=== PATIENT | male | born 1970 | race Caucasian/White ===

== ENCOUNTER 2017-07-06 20:11 | Emergency (ER) | payer SELFPAY ==
[~2017-07-06] VITALS: Ht 175.3 cm; Wt 130.5 kg
[2017-07-06] MEDS ORDERED: CANA100T PO (20:48)
[2017-07-06] MEDS ORDERED: METO-385 PO (20:51)
[2017-07-06] MEDS ORDERED: METO50TA5 PO (20:51)
[2017-07-07] MEDS ORDERED: BACITRACIN ZINC OINT UDPKT TOP ONE ×2
[2017-07-07] MEDS ORDERED: HYDROCODONE/ACETAMINOPHEN 5/325MG TABLET PO ONE
[2017-07-07] MEDS ORDERED: LIDOCAINE HCL 1% 20ML VIAL (Pyxis) INJ MC ONE
[2017-07-07] MEDS ORDERED: TETANUS, DIPHTHERIA, PERTUSSIS VAC/PF 0.5ML (>7YR OLD) IM ONE
[2017-07-07 01:35] VITALS: BP 139/74
== END 2017-07-07 01:55 | disposition home or self-care (01) ==
LOC: ER 20:11
DX: L02.11 Cutaneous abscess of neck (principal); E11.9 Type 2 diabetes mellitus without complications; I10 Essential (primary) hypertension; Z87.891 Personal history of nicotine dependence; E66.01 Morbid (severe) obesity due to excess calories; Z68.41 Body mass index [BMI] 40.0-44.9, adult
CPT/HCPCS: 10060; 90471; 90715; 99283; J3490; Z7610

== ENCOUNTER 2017-07-08 10:25 | Emergency (ER) | payer SELFPAY ==
[~2017-07-08] VITALS: Ht 175.3 cm; Wt 132.0 kg
[~2017-07-08 10:25] MED LIST: CANA100T PO; METO-385 PO; METO50TA5 PO
[2017-07-08 11:36] VITALS: BP 163/83
[2017-07-08] MEDS ORDERED: BACITRACIN ZINC OINT UDPKT TOP ONE (12:30)
== END 2017-07-08 12:46 | disposition home or self-care (01) ==
LOC: ER 11:52
DX: Z48.00 Encounter for change or removal of nonsurgical wound dressing (principal); E11.9 Type 2 diabetes mellitus without complications; I10 Essential (primary) hypertension
CPT/HCPCS: 99283

== ENCOUNTER 2017-10-13 10:37 | Emergency (ER) | payer OTHER ==
[~2017-10-13] VITALS: Ht 175.3 cm; Wt 127.0 kg
[~2017-10-13 10:37] MED LIST changes: +METO-539 PO; -METO50TA5 PO
[2017-10-13 11:18] VITALS: BP 163/87
[2017-10-13] MEDS ORDERED: KETOROLAC 60MG/2ML VIAL IM ONE (13:45)
[2017-10-13] MEDS ORDERED: BACITRACIN ZINC OINT UDPKT TOP ONE (13:45)
[2017-10-13] MEDS ORDERED: LIDOCAINE HCL 1% 20ML VIAL (Pyxis) INJ MC ONE (13:45)
[2017-10-13] MEDS ORDERED: ACETAMINOPHEN 325MG TABLET PO ONE (14:30)
== END 2017-10-13 14:48 | disposition home or self-care (01) ==
LOC: ER 12:27
DX: L02.11 Cutaneous abscess of neck (principal); E11.9 Type 2 diabetes mellitus without complications; I10 Essential (primary) hypertension
CPT/HCPCS: 10060; 87070; 87205; 96372; 99284; J1885; J3490; Z7610; 99283